=== PATIENT | female | born 1995 | race Caucasian/White ===

== ENCOUNTER 2022-12-25 18:25 | Emergency (ER) | payer SELFPAY ==
[2022-12-25 18:35] VITALS: BP 123/70; PULSE 101; RESP 18; TEMP 36.9; O2SAT 99
--- NOTE | 2022-12-25 18:44 | PC.NURSE ---
Patient up to triage desk to notify this RN that she no longer wanted to wait to be seen. She stated I think it's just a migraine. I'm going to go home and sleep it off . patient encouraged to stay but she declined. Encouraged to return with any new or worsening sx.
== END 2022-12-25 21:41 | disposition left against medical advice (07) ==
PROVIDERS: PCP Hospitalist
DX: R51.9 Headache, unspecified (principal)
CPT/HCPCS: 99199

== ENCOUNTER 2025-06-02 12:08 | Emergency (ER) | payer BC, SELFPAY ==
--- NOTE | ~2025-06-02 | XR_ITS ---
EXAMINATION: XR chest 1V portable 06/02/2025 17:00 INDICATION: Chest pain PROCEDURE: AP portable chest COMPARISON: 10/14/2019 FINDINGS: The lungs are clear. The cardiomediastinal silhouette is within normal limits. There are no pleural effusions. There is no pneumothorax suspected. There are calcified mediastinal and right hilar lymph nodes and there is calcified granuloma in the right apex. Findings compatible with chronic granulomatous disease. IMPRESSION: 1: NO ACUTE CARDIOPULMONARY DISEASE. Reviewed, dictated and finalized at location O.
--- NOTE | 2025-06-02 12:09 | ECG_ITS ---
Test Date: 2025-06-02 12:13:36 Measurements Intervals [place] Rate: 88 P: 43 OR: 146 QRS: 56 QRSD: 82 T: 36 QT: 355 QTc: 431 Interpretive Statements SINUS RHYTHM NORMAL ECG No previous ECG available for comparison Electronically Signed On 06-02-2025 16:24:25 CDT by Jorje Villeda M.D.
[2025-06-02 12:32] LABS: Hematocrit 38.1 % (37.0-47.0); Hemoglobin 12.8 g/dL (12.0-15.0); Immature Granulocyte Percent A 0.3 % (0-0.5); Lymphocytes Absolute Auto 2.34 K/mm3 (0.9-3.2); Mean Corpuscular HGB Conc 33.6 g/dl (32-36); Mean Corpuscular Hemoglobin 30.5 pg (26-34); Mean Corpuscular Volume 90.7 fl (80-100); Nucleated Red Blood Cells Absolute Auto 0.000 K/mm3 (0.0-0.012); Nucleated Red Blood Cells Perc 0.0 % (0.0-0.2); Platelet Count Result 313 k/mm3 (150-375); Red Blood Count 4.20 M/mm3 (4.2-5.4); White Blood Count 11.6 K/mm3 (4.5-10.0)
[2025-06-02 12:43] LABS: INR 0.9; Prothrombin Time 12.7 Seconds (11.1-14.7)
[2025-06-02 12:44] LABS: Partial Thromboplastin Time 26.4 Seconds (22.3-36.8)
[2025-06-02 12:46] LABS: Alanine Aminotransferase 15 U/L (6-35); Albumin Level 4.2 g/dL (3.5-5.1); Alkaline Phosphatase 93 U/L (38-126); Anion Gap 9 mmol/L (4-12); Aspartate Amino Transferase 19 U/L (14-36); Bilirubin,Total 0.5 mg/dL (0.2-1.3); Blood Urea Nitrogen 9 mg/dL (7-17); Calcium 9.0 mg/dL (8.4-10.2); Carbon Dioxide 21 mmol/L (22-30); Chloride 105 mmol/L (98-107); Estimated Glomerular Filt Rate > 60; Glucose 103 mg/dL (65-110); Lipase 112 U/L (23-300); Potassium 3.9 mmol/L (3.4-5.0); Sodium 135 mmol/L (137-145); Total Protein 6.8 g/dL (6.3-8.2)
[2025-06-02 12:52] VITALS: BP 137/85; PULSE 103; RESP 18; TEMP 36.7; O2SAT 100
--- OUTSIDE RECORDS SUMMARY | 2025-06-02 12:58 | XMS_ITS | Clinical Summary ---
Author Organization [id number] [place] Address [address] [place] [id number] Care Team Providers Care Waste Salvager Name Role Phone Lilian Noel NP Primary Care Provider [phone] Mirella Zamorano MD Unavailable [phone] Allergies No known active allergies Medications no122/iron/foli c acid ( MULTI ORAL) Take by mouth Active Lactobac no.41/Bifidobac t no.7 (PROBIOTIC-10 ORAL) Take by mouth Active magnesium oxide 400 mg magnesium capsule Take by mouth 250 mg qd Active ascorbic acid (vitamin C) 100 mg tablet Take 1 tablet (100 mg total) by mouth daily Active cholecalciferol (Vitamin D3) 2000 unit tablet Take 1 tablet (2,000 Units total) by mouth daily Active omega-3 fatty acids-fish oil 300-1,000 mg capsule Take 2 capsules (2 g total) by mouth daily Active progesterone (PROMETRIUM) 200 mg capsule Take 1 capsule (200 mg total) by mouth daily 30 capsule 11 5 05/19/20 26 Active nystatin-triamc inolone creamIndication s:cutaneous candidiasis Apply to affected area twice a day for 7-14 days, then as needed for rash. 30 g 5 05/25/20 25 fluconazole (DIFLUCAN) 150 mg tablet Repeat in 3 days if symptoms persist. 2 tablet 05/21/20 25 Discontinue d(Therapy completed) Active Problems Problem Noted Date Diagnosed Date Vaginal delivery 08/19/2023 Threatened 12/30/2022 Assessment & Plan (12/30/2022 8:44 PM CDT): Viable early IUP at 5w6d, EDC 08/20/2023 Call with any bleeding. Return in one week for repeat ultrasound. Skin lesion of neck 07/24/2021 Assessment & Plan (07/24/2021 8:24 AM CDT): Referred to dermatology for further evaluation and management. Clicking of left hip 07/24/2021 Assessment & Plan (07/24/2021 8:25 AM CDT): Encouraged range of motion exercises. Encouraged patient to use a he had 20 minutes prior to stretching. Notify our office if no improvement. Class 2 obesity due to exces s calories without serious comorbidity with body mass index (BMI) of 36.0 to 36.9 in adult 07/24/2021 Assessment & Plan (01/04/2025 12:00 PM CDT): Pt wanting to conceive in the next 2 months. Discussed consistent exercise and diet. Will get updated labs. Healthy, low carbohydrate lifestyle and exercise for 150min/week recommended Assessment & Plan (06/21/2023 10:03 AM CDT): Continue follow up with OB on healthy weight gain. Assessment & Plan (06/04/2022 2:44 PM CDT): Patient has had difficulty maintaining and sustaining weight loss; however patient reports she has not consistent with diet or activity changes Encouraged patient continue to work on small sustainable changes, use of resources to help with accountability and behavioral modifications Will continue to monitor; follow-up in 1 year, or earlier if patient would like continued evaluation for weight loss Encouraged patient continue with caloric restriction, as well as moderate intensity exercise 5 days per week Assessment & Plan (07/24/2021 8:25 AM CDT): Weight reduction, daily exercise and dietary modifications recommended. Comments Yes Encounters Date Type Department Care Team Description 05/24/2025 Results Follow-Up [facility] [address] [place] [phone] Mirella Zamorano MD Urine culture Urine, clean voided 05/21/2025 1:15 PM CDT - 05/21/2025 11:59 PM CDT Hospital Encounter [address] [phone] First trimester Discharge Disposition: Discharge to home or self care 05/21/2025 8:00 AM CDT Procedure visit [facility] [address] [place] [phone] Mirella Zamorano MD First trimester (Primary Dx) 05/19/2025 10:35 AM CDT Lab [address] [address] Bleeding in early 05/19/2025 Telephone [facility] [address] [place] [phone] Mirella Zamorano MD 05/19/2025 Telephone [facility] [address] [place] [phone] Mirella Zamorano MD Bleeding in 05/04/2025 Telephone [facility] [address] [place] [phone] Mirella Zamorano MD Possible 04/30/2025 6:27 PM CDT - 04/30/2025 11:59 PM CDT Hospital Encounter [address] [phone] Vaginal irritation Discharge Disposition: Discharge to home or self care 04/30/2025 3:15 PM CDT Office Visit [facility] [address] [facility] [address] [place] [phone] Mirella Zamorano MD Vaginal irritation (Primary Dx) 03/30/2025 Patient Message [facility] at [address] [phone] Lilian Noel NP Referral for histotechnologist supervisor from Last 3 Months Immunizations Immunization Administration Dates Next Due Influenza, Quadrivalent, Spl it, Preservative Free, Intramuscular 06/27/2023,08/13/2022,07/24/2021,07/02,06/25/2018 Influenza, Unspecified 09/23/2023,2022(Deferred: Patient Refused),04/23/2023,09/23/2022(Deferre d: Patient Refused) MMR 04/22/2020 Meningococcal Conjugate (Menveo) 04/19/2011 Meningococcal MCV4P (Menactra) 05/11/2015 Tdap 06/27/2023,06/25/2018 Surgical History Surgery Date Site/Laterality Comments LEG SURGERY 09/23/2003 - 09/22/2004 Left fixation tibia and fibula TONSILLECTOMY 09/23/2017 - 09/22/2018 N/A FRACTURE SURGERY 2006 WISDOM TOOTH EXTRACTION Removed at age 19 CERVICAL POLYPECTOMY Removed from cervix during , at appx. 17 weeks gestation Medical History Medical History Date Comments Anxiety 2019 Family History Medical History Relation Name Comments Learning disabilities Brother Genevieve Alcohol abuse Father Dionisio Rashes / Skin problems Maternal Grandfather Thiago Arthritis Maternal Grandmother Brii Diabetes Maternal Grandmother Brii Diabetes type II Maternal Grandmother Brii Fibromyalgia Maternal Grandmother Brii Heart attack Maternal Grandmother Brii Heart disease Maternal Grandmother Brii Miscarriages / Stillbirths Mother Sarah Cancer Paternal Grandmother Myesha Lung cancer Paternal Grandmother Myesha Breast cancer Neg Hx Colon cancer Neg Hx Endometrial cancer Neg Hx Ovarian cancer Neg Hx Pancreatic cancer Neg Hx Relation Name Status Comments Brothodessa [place] Father Dionisio Maternal Grandfather Thiago Maternal Grandmother Brii Mother Sarah Paternal Grandmother Myesha Social History Tobacco Use Types Packs/Day Years Used Date Smoking Tobacco: Never Passive Smoke Exposure: Past Smokeless Tobacco: Never Tobacco Cessation:Counseling Given: Not Answered Alcohol Use Standard Drinks/Week Comments No 0 (1 standard drink = 0.6 oz pur e alcohol) Social Connection and Isolation Panel Answer Date Recorded In a typical week, how many times do you talk on the phone with family, friends, or neighbors? Three times a week 07/04/2023 How often do you get togethe r with friends or relatives? Three times a week 07/04/2023 How often do you attend chur or samaritan services? Never 07/04/2023 Do you belong to any clubs o r organizations such as rastafari groups, unions, fraternal or athletic groups, or school groups? Yes 07/04/2023 How often do you attend meet ings of the clubs or organizations you belong to? Never 07/04/2023 Are you , , di vorced, , never , or living with a partner? 07/04/2023 AUDIT-C Answer Date Recorded Q1: How often do you have a drink containing alc ohol? Monthly or less 06/04/2022 Q2: How many drinks containi ng alcohol do you have on a typical day when you are drinking? 1 or 2 06/04/2022 Q3: How often do you have si x or more drinks on one occasion? Never 06/04/2022 Overall Financial Resource Strain (CARDIA) Answe r Date Recorded How hard is it for you to pa y for the very basics like food, housing, medical care, and heating? Not hard at all 08/19/2023 PHQ-2 Answer Date Recorded PHQ-2 Total Score (If total score is 3 or more points, staff should administer the PHQ-9) 0 01/04/2025 [facility] - Occupational Stress Questionnaire Answer Date Recorded Do you feel stress - tense, restless, nervous, or anxious, or unable to sleep at night because your mind is troubled all the time - these days? Not at all 08/19/2023 Exercise Vital Sign Answer Date Recorde d On average, how many days pe r week do you engage in moderate to strenuous exercise (like a brisk walk)? 3 days 08/19/2023 On average, how many minutes do you engage in exercise at this level? 30 min 08/19/2023 Hunger Vital Sign Answer Date Recorded Within the past 12 months, y ou worried that your food would run out before you got the money to buy more. Never true 08/19/20 23 Within the past 12 months, t he food you bought just didn't last and you didn't have money to get more. Never true 08/19/2023 PRAPARE - Transportation Answer Date Re corded In the past 12 months, has l ack of transportation kept you from medical appointments or from getting medications? No 07/25 In the past 12 months, has l ack of transportation kept you from meetings, work, or from getting things needed for daily living? No 08/19/2023 Housing Stability Vital Sign Answer Allan e Recorded In the last 12 months, was t here a time when you were not able to pay the mortgage or rent on time? No 08/19/2023 Number of Places Lived in the Last Year Not on f ile 08/19/2023 In the last 12 months, was t here a time when you did not have a steady place to sleep or slept in a retirement (including now)? No 08/19/2023 Plano Depression Scale Answer Date Recorded Plano Depression Scale Total 4 10/16/2023 The thought of harming myself has occurred to me . Never 10/16/2023 Personal Safety Answer Date Recorded Have you ever been in or are you currently in a harmful physical or emotional relationship or is someone making you feel afraid or unsafe? Denies 08/19/2023 Comments Yes Sex and Gender Information Value Date Recorded Sex Assigned at Not on file Legal Sex Female 1:23 AM CREATIVE DIRECTOR Gender Identity Female 07/17/2021 9:04 AM CDT Sexual Orientation Straight 07/17/2021 9: 04 AM CDT Obstetrics History Para Term AB IAB SAB Ectopic Multiple Livin g Live Births 2 1 1 0 0 0 0 0 0 1 1 Date Outcome GA Total Labor Labor/2nd/3rd Weight Sex Type Anes PTL Zoe A1 A5 Name Clin 2022 Term 39w 6d 0h 37m 0h 33m/0h 04m 3.79 kg (8 lb 5.7 oz) M Vagina l Epidur al N Livin g 8 9 Theod amanuel M SpannHanny Garcia MD Complications:None Delivery Location:This Facil ity ([facility]) Current Comments Menarche at age 13 or 14 OCPs for 10 years. Stopped 10/2019 Normal pap in 2020 6 day periods about every 26 days Last Filed Vital Signs Vital Sign Reading Time Taken Comments Blood Pressure 120/64 05/21/2025 8:06 AM CDT Pulse 87 01/04/2025 11:29 AM CDT Temperature 36.6 C (97.8 F) 01/04/2025 11:29 AM CDT Respiratory Rate 20 08/21/2023 8:00 AM CREATIVE DIRECTOR Oxygen Saturation 99% 01/04/2025 11:29 AM CDT Inhaled Oxygen Concentration - - Weight 117.9 kg (260 lb) 05/21/2025 8:06 AM CDT Height 177.8 cm (5' 10) 05/21/2025 8:06 AM CDT Body Mass Index 37.31 05/21/2025 8:06 AM CDT Plan of Treatment Health Maintenance Due Date Last Done Comments Hepatitis B Screening 2015 Varicella Vaccines (1 of 2 - 13+ 2-dose series) 05/20/2020 HPV Vaccines (1 - 3-dose SCDM series) 01/23/2024 Covid-19 Vaccine (2024- season) 2025 08/25/2021, 12/10/2020, 11/12/2020 Influenza Vaccine (#1) 2025 , 06/27/2023, 04/23/2023, Additional history exists Depression Screening 01/04/2026 01/04/2025, 01/14/2024, 10/16/2023, Additional history exists Regular Well Visit/Exam 18-64 01/04/2026 01/04/2025, 12/29/2024, 12/12/2023, Additional history exists Cervical Cancer Screening 12/11/2026 12/12/2023, 11/2020 DTaP/Tdap/Td Vaccine (3 - Td or Tdap) 06/27/2033 06/27/2023, 06/25/2018 Hepatitis C Screening Completed 01/23/2023 Pneumococcal vaccine <65 Aged Out No longer eligible based on patient's age to complete this topic Procedures Procedure Name Priority Date/Time Associated Diagnosis Comments N. GONORRHOEAE/C. TRACHOMATIS AMPLIFICATION Routine 05/21/2025 6:50 PM CDT First trimester URINE CULTURE Routine 05/21/2025 6:45 PM CDT First trimester HCG, BLOOD, QUANTITATIVE Routine 05/19/2025 10:37 AM CDT Bleeding in early PROGESTERONE Routine 05/19/2025 10:37 AM CDT Bleeding in early VAGINITIS PANEL Routine 04/30/2025 6:45 PM CDT Vaginal irritation PAP WITH REFLEX TO HIGH RISK HPV Routine 12/12/2023 4:44 PM CDT Screening for cervical cancer HEPATITIS C ANTIBODY Routine 01/23/2023 3:37 PM CDT Threatened from Last 3 Months or Most Recently Relevant to Health Maintenance Results * N. gonorrhoeae/C. trachomatis Amplification Urine (05/21/2025 6:50 PM CDT) C. trachomatis Not Detected Not Detected N. gonorrhoeae Not Detected Not Detected [facility] Comment: Interpretive Data This assay detects Chlamydia trachomatis and Neisseria gonorrhoeae by nucleic acid amplification testing (NAAT). This assay has been cleared by the [place] Food and Drug administration. The performance characteristics of this test have been verified by the [facility]. The performance characteristics of this test have not been evaluated in individuals less than 14 years of age. Current Interpretive Data last revised 2023. Urine (None) 05/21/2025 6:50 PM CDT 05/21/2025 6:50 PM CDT us Mirella Zamorano MD LAB MICROBIOLOGY - GEN ERAL ORDERABLES Final Result [facility] [address] [place] [address] * (ABNORMAL) Urine culture Urine, clean voided (05/21/2025 6:45 PM CDT) Report Final Report: Growth indicates contamination with gram-positive forest. Includes the following: Less than 10,000 colonies/ml of Streptococcus agalactiae (Group B Streptococci) Penicillin is the drug of choice for Beta strep infections. If susceptibility testing is clinically indicated, please contact the Microbiology Lab within 7 days for susceptibilites ([phone]). (.) Organism GROWTH INDICATES CONTAMINATION WITH GRAM-POS [facility] Organism STREPTOCOCCUS AGALACTIAE (GROUP B STREPTOCOCCI) [facility] Urine, clean voided 05/21/2025 6:45 PM CDT 05/21/2025 6:45 PM CDT Mirella Zamorano MD LAB MICROBIOLOGY - GEN ERAL ORDERABLES Final Result Performing Organization Address City/[facility] Co de Phone Number [facility] [address] Department [place] [address] * (ABNORMAL) Progesterone (05/19/2025 10:37 AM CDT) Progesterone 11.1(H) 0.0 - 0.2 ng/mL Comment: Interpretive Data Males: <0.15 ng/mL Females: Follicular <0.20 ng/mL Ovulation <4.1 ng/mL Luteal 4.1 - 14.5 ng/mL 1st Trimester 11.0 - 44.0 ng/mL 2nd Trimester 25.0 - 83.0 ng/mL 3rd Trimester 59.0 - 214.0 ng/mL Postmenopausal <0.13 ng/mL Current interpretive data was last revised 2021. Blood 05/19/2025 10:3 7 AM CDT 05/19/2025 2:38 PM CDT Mirella Zamorano MD LAB BLOOD ORDERABLES F inal Result Performing Organization Address City/State/[facility] Co de Phone Number [address] [place] [address] * (ABNORMAL) hCG, blood, quantitative (05/19/2025 10:37 AM CDT) [facility] hCG, quant 22,825.0( H) 0.0 - 5.0 IUnits/L Comment: Interpretive Data Male: < 5 IU/L Non- premenopausal Female: <5 IU/L The Jie hCG Beta Quant assay procedure was used. Results from different manufacturers or methods may not be comparable. Serial testing should be performed using the same method. Interpretive Data was last revised on 2023 Blood 05/19/2025 10:3 7 AM CDT 05/19/2025 2:38 PM CDT Mirella Zamorano MD LAB BLOOD ORDERABLES F inal Result Performing Organization Address City/[facility] Co de Phone Number [address] of [employer] [place] [address] * (ABNORMAL) Vaginitis panel Vaginal (04/30/2025 6:45 PM CDT) [facility] Bacterial Vaginosis Not Detected Not Detected Comment:A negative result do es not preclude a possible infection. Results should be considered in conjunction with clinical presentation to determine the disease status. Alysha group Detected(A) Not Detected [facility] Comment:Alysha species can be present as commensal organisms in women; results should be considered in conjunction with clinical presentation to determine the disease status. Alysha glabrata/ krusei Not Detected Not Detected [facility] Trichomonas DNA Not Detected Not Detected [facility] Vaginal 04/30/2025 6:45 PM CDT 04/30/2025 6:48 PM CDT Narrative [facility] - 04/30/2025 8:07 PM CDT The [employer] Xpert Xpress MVP test detects DNA targets from anaerobic bacteria associated with bacterial vaginosis, Alysha species associated with vulvovaginal candidiasis, and Trichomonas vaginalis by nucleic acid amplification testing (NAAT). Results should be interpreted in conjunction with other clinical data. This test cannot be used to assess therapeutic success or failure because target nucleic acids may persist following antimicrobial therapy. This test has been cleared by the [place] Food and Drug Administration to aid in the diagnosis of vaginal infections in symptomatic women ages 14 and older. The performance characteristics of this test have been verified by the [facility]. Mirella Zamorano MD LAB MICROBIOLOGY - GEN ERAL ORDERABLES Final Result [facility] [id number] Department of Laboratories [place] [id number] * Pap with reflex to High Risk HPV and Genotyping (Cytology Component) (12/12/2023 4:44 PM CDT) Thin prep (Pap test) 12/12/2023 4:44 PM CDT 12/13/2023 3:53 PM CDT Narrative PATHOLOGY [facility] - 12/16/2023 1:27 PM CDT EPIC results best viewed via link to PDF [place] [id number] [place], [place] [address] Tele: Suzi Benavides MD - Business Education Instructor CYTOLOGY REPORT Note to Patients: This report may contain a detailed description of human tissue sent by a health care provider to the laboratory for pathologic evaluation. The content of this report is essential for diagnosis and may provide important critical findings. This information may be unfamiliar to patients to review without a medical professional present. It is advised that the patient review this report in the presence of a health care provider who can answer questions and explain the details. Patient Name: DARRICK SPANN Address: [address] [place] [address] Gender: F : 1995 (Age: 28) Service: Location: [facility] #: [id number] Patient [place] [facility] [place] Taken: 12/12/2023 Reported: 12/16/2023 Physician(s): Mirella Zamorano MD FINAL DIAGNOSIS: SOURCE OF SPECIMEN - ThinPrep Pap w/ reflex HPV: STATEMENT OF ADEQUACY Source: Cervical/Endocervical - Satisfactory for interpretation - Endocervical/Transformation zone component absent or insufficient - Case screened using computer assisted imaging technology and manually re- screened by a archivist political history. GENERAL CATEGORIZATION: - Negative for intraepithelial lesion or malignancy [facility]/12/16/2023 13:27REUBEN Smith(ASCP), CFIAC Report Reviewed and Electronically Signed By REUBEN Smith(ASCP), CFIACClerical Data Follow A; [id number] CLINICAL DIAGNOSIS AND HISTORY Last Menstrual Period: 12/08/23 REPORT IMAGES AND/OR SCANNED DOCUMENTS ONLY VIEWABLE IN PDF FORMAT The Pap test is a screening test used to aid in the detection of cervical cancer and its precursors. It should not be the sole means by which malignant and premalignant lesions are diagnosed. Both false negative and false positive results may occur. It also has poor sensitivity for the detection of endometrial lesions and should not be used to evaluate suspected endometrial abnormalities. For these reasons it is most important to obtain Pap tests at regular intervals, as recommended by your physician or nurse practitioner. us Mirella Zamorano MD LAB CYTOLOGY ORDERABLE S Final Result PATHOLOGY [facility] Laboratory Receiving [id number] [place] [address] * Hepatitis C antibody (01/23/2023 3:37 PM CDT) Hep C Ab Nonreactive Nonreactive [facility] Comment: Interpretive Data Nonreactive: Antibodies to HCV not detected. Does NOT exclude the possibility of recent exposure to HCV. Equivocal: Equivocal for HCV antibodies. Supplemental molecular testing will be automatically performed to determine infection status in accordance with current CDC screening recommendations. Reactive: Positive for HCV antibodies. This may represent current or past HCV infection. Supplemental molecular testing will be automatically performed to determine current infection status in accordance with current CDC screening recommendations. Interpretive data was last revised on 2019. Blood 01/23/2023 3:37 PM CDT 01/23/2023 8:14 PM CDT us Mirella Thuet Lona MD LAB MICROBIOLOGY - GEN ERAL ORDERABLES Edited Result - Final [facility] [id number] [facility] [place] [address] from Last 3 Months or Most Recently Relevant to Health Maintenance Insurance [employer] [place] [facility] H[facility]/PPO Address: [address] [address] [place] [address] [facility] Advance Directives For more information, please contact: [phone] * Full Code (Latest Code Status on File) Date Activated Date Inactivated Comments 08/19/2023 8:20 PM 08/21/2023 2:42 PM * Full Code Date Activated Date Inactivated Comments 08/19/2023 8:13 AM 08/19/2023 8:20 PM Full CPR i n case of cardiopulmonary arrest Care Teams Waste Salvager Relationship Specialty Start Date End Date Lilian Noel NP [address] [place] [address] PCP - General Family Medicine 06/21/23 Mirella Zamorano MD [address] [place] [address] Consulting Physician Obstetrics and Gynecology 06/21/23
--- OUTSIDE RECORDS SUMMARY | 2025-06-02 12:58 | XMS_ITS | Encounter Summary ---
Author Organization [facility] Healthcare Address [address] [place] [address] Care Team Providers Care Robot Operator Name Role Phone Lilian Noel NP Primary Care Provider [phone] Mirella Zamorano MD Unavailable [phone] Encounter Details Date Type Department Care Team (Late st Contact Info) Description 05/24/2025 Results Follow-Up [facility] [address] [id number] Mirella Zamorano MD [address] [address] Urine culture Urine, clean voided Social History Tobacco Use Types Packs/Day Years Used Date Smoking Tobacco: Never Passive Smoke Exposure: Past Smokeless Tobacco: Never Alcohol Use Standard Drinks/Week Comments No 0 [...] week 07/04/2023 How often do you attend [facility] or pentecostalism services? Never 07/04/2023 Do you belong to any clubs o r organizations such as orthodox groups, unions, fraternal or athletic groups, or [...] staff should administer the PHQ-9) 0 01/04/2025 [facility] - Occupational Stress [...] place to sleep or slept in a long-term (including now)? 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 It did show group beta strep though. This is the bacteria that we do the swab for later in but because you showed it now, we don'tneed to do that. We just recommend antibiotics during labor. No stress AC documented in this encounter Plan of Treatment Not on file documented as of this encounter Visit Diagnoses Not on filedocumented in this encounter Care Teams Robot Operator Relationship Specialty Start Date End Date Lilian Noel NP [address] [place] [address] PCP - General Family Medicine 06/21/23 Mirella Zamorano MD [address] [address] Consulting Physician Obstetrics and Gynecology 06/21/23 documented as of this encounter
[2025-06-02 13:03] LABS: Troponin I < 0.012 ng/mL (0.000-0.034)
--- NOTE | 2025-06-02 13:09 | ED_ITS ---
HPI - Chest Pain General Chief Complaint: Chest Pain <Yuriy Gamez APRN - Last Filed: 06/02/25 13:13> Stated Complaint: 8 wks preg, CHEST PAIN,SOB <Yuriy Gamez APRN - Last Filed: 06/02/25 13:13> Time Seen by Provider: 06/02/25 15:44 <Yuriy Gamez APRN - Last Filed: 06/02/25 13:13> Focused HPI: 30-year-old female presents to the ER complaining of chest pain and shortness of breath. Patient reports symptoms have been gone the last 3 days. Patient says she gets the chest pain shortness of breath when she is exerting herself that will rapidly subsided. Patient is currently 8 weeks also reports having vaginal spotting, she had a ultrasound 2 weeks ago was evaluated by our OBGYN told she had a viable . Patient denies any abdominal pain, nausea, vomiting, diarrhea, fevers, body aches, chills, urinary symptoms, or any other symptoms. Patient has any recent surgeries, prolonged traveling, or any history of blood clots. Patient has appointment on Saturday at her OBGYN along with a repeat ultrasound. GENERAL: Well-appearing, well-nourished, and in no acute distress. HEAD: Normocephalic, atraumatic. CHEST: Clear to auscultation. ?No respiratory distress. HEART: Regular rate and rhythm.? NEURO: ?Alert and oriented x3. Patient screened in triage and initial orders placed.? ?Additional care and disposition to be based upon?diagnostic testing and treatment. <Yuriy Gamez APRN - Last Filed: 06/02/25 13:13> History of Present Illness HPI narrative: agree with HPI <Leobardo Suresh MD - Last Filed: 06/02/25 21:48> Related Data Home Medications: Home Medications ?Medication ?Instructions ?Recorded ?Confirmed ?Last Taken ?Type ascorbic acid (vitamin C) 500 mg 500 mg PO DAILY 08/0802/16/21 Unknown History tablet xbhwdtokrxda-Ms-eimk-minerals 18 tablet PO DAILY 08/0802/16/21 Unknown History mg-0.4 mg tablet (Maximum Daily Multivitamin) cholecalciferol (vitamin D3) 25 25 mcg PO DAILY 02/16/21 Unknown History mcg (1,000 unit) capsule famotidine 20 mg tablet 20 mg PO .PRN 02/16/2102/16 Unknown History <Yuriy Gamez APRN - Last Filed: 06/02/25 13:13> Allergies/Adverse Reactions: Allergies Allergy/AdvReac Type Severity Reaction Status Date / Time No Known Allergies Allergy Verified 06/02/25 12:09 <Yuriy Gamez APRN - Last Filed: 06/02/25 13:13> Review of Systems 2 Review of Systems: Gen.: Denies fevers or chills Eyes: Denies eye pain or visual change ENT: Denies congestion Respiratory: As per HPI CV: As per HPI GI: Denies abdominal pain nausea, emesis or diarrhea denies burning, urgency, frequency or hematuria Musculoskeletal: Denies back pain or muscle pain Neuro: Denies numbness, tingling, weakness or focal weakness Skin: Denies rash Except as documented, all other systems reviewed and negative <Leobardo Suresh MD - Last Filed: 06/02/25 21:48> [facility] Past Medical History Medical History: Medical History COVID-19 (~07/25/20) Anxiety <Yuriy Gamez APRN - Last Filed: 06/02/25 13:13> Surgical History Surgical History: Surgical History Hx of tonsillectomy (~2017) <Yuriy Gamez APRN - Last Filed: 06/02/25 13:13> Family History Family History: Family History Mother Patient's mother is in good health Father Patient's father is in good health Family history of alcoholism Grandparent Family history of lung cancer, Onset Age: 50 Family history of obesity Family history of hypercholesterolemia Family history of suicide Family history of arthritis <Yuriy Gamez APRN - Last Filed: 06/02/25 13:13> Social History Social History: Social History 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 Smoking status: Never smoker Second hand tobacco smoke exposure: No Alcohol intake: current Substance use: current Substance use type: marijuana Other substance usage details: occasional Gender identity (if verbalized by the patient): Female <Yuriy Gamez APRN - Last Filed: 06/02/25 13:13> Exam 2 Narrative: APPEARANCE: No acute distress, nontoxic, resting in bed EYES: EOMI HEENT: Normocephalic, atraumatic, OMM RESPIRATORY: No respiratory distress Clear to auscultation bilaterally with no rhonchi wheezing or rales. CARDIOVASCULAR: Regular rate and rhythm without murmurs rubs or gallops. ABDOMINAL: Soft, nontender, nondistended, no rebound or guarding MUSCULOSKELETAl: Moves all extremities. No clubbing, cyanosis or edema. NEURO: Awake and alert. Following commands, speech normal, no focal deficits SKIN:: Warm, dry. No rashes lesions or abrasions PSYCHIATRIC: Normal affect/mood, <Leobardo Suresh MD - Last Filed: 06/02/25 21:48> Course Vital Signs Vital signs: Vital Signs Temperature 98.0 F 06/02/25 12:52 Pulse Rate 103 H 06/02/25 12:52 Respiratory Rate 18 06/02/25 12:52 Blood Pressure 137/85 06/02/25 12:52 Pulse Oximetry 100 06/02/25 12:52 Temperature 98.0 F 06/02/25 12:52 Pulse Rate 84 06/02/25 17:42 Respiratory Rate 16 06/02/25 17:42 Blood Pressure 136/86 06/02/25 17:42 Pulse Oximetry 100 06/02/25 17:42 <Yuriy Gamez APRN - Last Filed: 06/02/25 13:13> Vital Signs Temperature 98.0 F 06/02/25 12:52 Pulse Rate 103 H 06/02/25 12:52 Respiratory Rate 18 06/02/25 12:52 Blood Pressure 137/85 06/02/25 12:52 Pulse Oximetry 100 06/02/25 12:52 Temperature 98.0 F 06/02/25 12:52 Pulse Rate 84 06/02/25 17:42 Respiratory Rate 16 06/02/25 17:42 Blood Pressure 136/86 06/02/25 17:42 Pulse Oximetry 100 06/02/25 17:42 <Leobardo Suresh MD - Last Filed: 06/02/25 21:48> MDM - Chest Pain MDM Narrative Medical decision making narrative: 30-year-old female who presented to the ED for exertional chest pain and dyspnea. On initial evaluation, patient is in no acute distress, afebrile and hemodynamically stable. Heart and lungs clear. Abdomen soft nontender. She had mild leukocytosis at 11.6. CMP with a significant abnormalities. HCG appropriately elevated. COVID/flu/RSV negative. D-dimer was obtained and by years criteria, PE has been ruled out in this patient. Chest x-ray showed no acute process. Suspect patient has an atypical chest pain versus costochondritis causing her symptoms. She has appoint with OB later this week which I encouraged her to go to. She was educated on Tylenol use. Patient was agreeable to this plan. Given strict return precautions. <Leobardo Suresh MD - Last Filed: 06/02/25 21:48> Differential Diagnosis Differential diagnosis: Likely fracture of rib, atypical chest pain, costochondritis and other (Viral syndrome) <Leobardo Suresh MD - Last Filed: 06/02/25 21:48> Medical Records Data Attestation: I reviewed the patient's medical records. <Leobardo Suresh MD - Last Filed: 06/02/25 21:48> Lab Data Attestation: I reviewed the patient's lab results. <Leobardo Suresh MD - Last Filed: 06/02/25 21:48> Result diagrams: 06/02/25 12:23 06/02/25 12:23 <Yuriy Gamez APRN - Last Filed: 06/02/25 13:13> Labs: Lab Results 06/02/25 06/02/25 06/02/25 Range/Units 12:23 16:06 16:44 WBC 11.6 H (4.5-10.0) K/mm3 RBC 4.20 (4.2-5.4) M/mm3 Hgb 12.8 (12.0-15.0) g/dL Hct 38.1 (37.0-47.0) % MCV 90.7 (80-100) fl MCH 30.5 (26-34) pg MCHC 33.6 (32-36) g/dl RDW 12.7 (11.5-14.5) % Plt Count 313 (150-375) k/mm3 MPV 9.1 (7.4-10.4) fl Immature Gran % (Auto) 0.3 (0-0.5) % Neut % (Auto) 71.1 (45.5-73.1) % Lymph % (Auto) 20.1 (18.3-44.2) % [place] % (Auto) 6.7 (2.6-8.5) % Eos % (Auto) 1.5 (0-4.4) % Baso % (Auto) 0.3 (0.2-1.2) % Lymph # (Auto) 2.34 (0.9-3.2) K/mm3 [place] # (Auto) 0.8 H (0.1-0.6) K/mm3 Eos # (Auto) 0.2 (0-0.3) K/mm3 Baso # (Auto) 0.0 (0.0-0.1) K/mm3 Abs Immat Gran (auto) 0.03 (0.00-0.031) K/mm3 Absolute Neuts (auto) 8.3 H (1.3-6.7) K/mm3 Absolute Nucleated RBC 0.000 (0.0-0.012) K/mm3 Nucleated RBC % 0.0 (0.0-0.2) % PT 12.7 (11.1-14.7) Seconds INR 0.9 APTT 26.4 (22.3-36.8) Seconds D-Dimer 0.92 H (<0.48) ug/mL Sodium 135 L (137-145) mmol/L Potassium 3.9 (3.4-5.0) mmol/L Chloride 105 (98-107) mmol/L Carbon Dioxide 21 L (22-30) mmol/L Anion Gap 9 (4-12) mmol/L BUN 9 (7-17) mg/dL Creatinine 0.62 L (0.7-1.0) mg/dL Estim Creat Clear Calc Not Reportable Estimated GFR > 60 (59 - ) Glucose 103 (65-110) mg/dL Calcium 9.0 (8.4-10.2) mg/dL Total Bilirubin 0.5 (0.2-1.3) mg/dL AST 19 (14-36) U/L ALT 15 (6-35) U/L Alkaline Phosphatase 93 (38-126) U/L Troponin I < 0.012 < 0.012 (0.000-0.034) ng/mL Total Protein 6.8 (6.3-8.2) g/dL Albumin 4.2 (3.5-5.1) g/dL Lipase 112 (23-300) U/L Beta HCG, Quant 384052.00 mIU/ML Influenza A (RT-PCR) Negative (Negative) Influenza B (RT-PCR) Negative (Negative) RSV (RT-PCR) Negative (Negative) SARS-CoV-2 RNA (RT-PCR) Negative (Negative) <Yuriy Gamez, ACTIVITIES AIDE - Last Filed: 06/02/25 13:13> Lab Results 06/02/25 06/02/25 06/02/25 Range/Units 12:23 16:06 16:44 WBC 11.6 H (4.5-10.0) K/mm3 RBC 4.20 (4.2-5.4) M/mm3 Hgb 12.8 (12.0-15.0) g/dL Hct 38.1 (37.0-47.0) % MCV 90.7 (80-100) fl MCH 30.5 (26-34) pg MCHC 33.6 (32-36) g/dl RDW 12.7 (11.5-14.5) % Plt Count 313 (150-375) k/mm3 MPV 9.1 (7.4-10.4) fl Immature Gran % (Auto) 0.3 (0-0.5) % Neut % (Auto) 71.1 (45.5-73.1) % Lymph % (Auto) 20.1 (18.3-44.2) % [place] % (Auto) 6.7 (2.6-8.5) % Eos % (Auto) 1.5 (0-4.4) % Baso % (Auto) 0.3 (0.2-1.2) % Lymph # (Auto) 2.34 (0.9-3.2) K/mm3 [place] # (Auto) 0.8 H (0.1-0.6) K/mm3 Eos # (Auto) 0.2 (0-0.3) K/mm3 Baso # (Auto) 0.0 (0.0-0.1) K/mm3 Abs Immat Gran (auto) 0.03 (0.00-0.031) K/mm3 Absolute Neuts (auto) 8.3 H (1.3-6.7) K/mm3 Absolute Nucleated RBC 0.000 (0.0-0.012) K/mm3 Nucleated RBC % 0.0 (0.0-0.2) % PT 12.7 (11.1-14.7) Seconds INR 0.9 APTT 26.4 (22.3-36.8) Seconds D-Dimer 0.92 H (<0.48) ug/mL Sodium 135 L (137-145) mmol/L Potassium 3.9 (3.4-5.0) mmol/L Chloride 105 (98-107) mmol/L Carbon Dioxide 21 L (22-30) mmol/L Anion Gap 9 (4-12) mmol/L BUN 9 (7-17) mg/dL Creatinine 0.62 L (0.7-1.0) mg/dL Estim Creat Clear Calc Not Reportable Estimated GFR > 60 (59 - ) Glucose 103 (65-110) mg/dL Calcium 9.0 (8.4-10.2) mg/dL Total Bilirubin 0.5 (0.2-1.3) mg/dL AST 19 (14-36) U/L ALT 15 (6-35) U/L Alkaline Phosphatase 93 (38-126) U/L Troponin I < 0.012 < 0.012 (0.000-0.034) ng/mL Total Protein 6.8 (6.3-8.2) g/dL Albumin 4.2 (3.5-5.1) g/dL Lipase 112 (23-300) U/L Beta HCG, Quant 195920.00 mIU/ML Influenza A (RT-PCR) Negative (Negative) Influenza B (RT-PCR) Negative (Negative) RSV (RT-PCR) Negative (Negative) SARS-CoV-2 RNA (RT-PCR) Negative (Negative) <Leobardo Suresh MD - Last Filed: 06/02/25 21:48> Imaging Data Radiologist's impression: Impressions Chest X-Ray 06/02/25 17:01 IMPRESSION: 1: NO ACUTE CARDIOPULMONARY DISEASE. <Leobardo Suresh MD - Last Filed: 06/02/25 21:48> ECG Data EKG #1: Attestation: I personally reviewed and interpreted this ECG as follows: <Leobardo Suersh MD - Last Filed: 06/02/25 21:48> ECG completion date: 06/02/25 <Leobardo Suresh MD - Last Filed: 06/02/25 21:48> ECG completion time: 12:13 <Leobardo Suresh MD - Last Filed: 06/02/25 21:48> Interpretation: Normal sinus rhythm rate of 88, normal axis, normal intervals, no acute ST or T-wave changes <Leobardo Suresh MD - Last Filed: 06/02/25 21:48> EKG #2: ECG completion date: 06/02/25 <Leobardo Suresh MD - Last Filed: 06/02/25 21:48> ECG completion time: 15:54 <Leobardo Suresh MD - Last Filed: 06/02/25 21:48> Interpretation: Normal sinus rhythm rate of 91, normal axis, normal intervals, no acute ST or T-wave changes. No change from earlier <Leobardo Suresh MD - Last Filed: 06/02/25 21:48> Discharge Plan Discharge Clinical Impression: Atypical chest pain <Yuriy Gamez APRN - Last Filed: 06/02/25 13:13> Patient Disposition: Home <Yuriy Gamez APRN - Last Filed: 06/02/25 13:13> Condition: Stable <Yuriy Gamez APRN - Last Filed: 06/02/25 13:13> Instructions: Antibiotic Form, Chest Pain (ED) <Yuriy Gamez APRN - Last Filed: 06/02/25 13:13> Additional Instructions: Your lab work, chest x-ray, EKG all reassuring and not indicative of heart damage at this time. There is no evidence of clots knee lungs. Follow-up with your OB on Saturday as scheduled. Return to the ED for any new or worsening symptoms. <Yuriy Gamez APRN - Last Filed: 06/02/25 13:13> Patient Language: Taiwanese <Yuriy Gamez APRN - Last Filed: 06/02/25 13:13> Prescriptions: No Action famotidine 20 mg tablet 20 mg PO .PRN cholecalciferol (vitamin D3) 25 mcg (1,000 unit) capsule 25 mcg PO DAILY clotrimazole-betamethasone 1-0.05 % cream 1 applic topical BID 28 Days Qty: 45 1RF Maximum Daily Multivitamin 18-0.4 mg tablet PO DAILY ascorbic acid (vitamin C) 500 mg tablet 500 mg PO DAILY <Yuriy Gamez APRN - Last Filed: 06/02/25 13:13> Follow-up/Referrals: Bert,Lilian Ortiz APRN [Primary Care Provider, Unknown] <Yuriy Gamez APRN - Last Filed: 06/02/25 13:13>
[2025-06-02 13:43] VITALS: PULSE 83
[2025-06-02 14:39] LABS: Beta HCG Quantitative 108520.00 mIU/ML
[2025-06-02 14:47] VITALS: BP 143/73; PULSE 79; RESP 18; O2SAT 100
--- NOTE | 2025-06-02 15:45 | ECG_ITS ---
Test Date: 2025-06-02 15:54:15 Measurements Intervals [place] Rate: 91 P: 50 SC: 155 QRS: 48 QRSD: 83 T: 36 QT: 358 QTc: 443 Interpretive Statements SINUS RHYTHM NORMAL ELECTROCARDIOGRAM Compared to ECG 06/02/2025 12:13:36 No significant changes Electronically Signed On 06-02-2025 16:30:17 CDT by Jorje Villeda M.D.
--- OUTSIDE RECORDS SUMMARY | 2025-06-02 16:33 | XMS_ITS | Encounter Summary ---
Author Organization [facility] Healthcare Address [address] [place] [address] Care Team Providers Care Asphalt Distributor Operator Name Role Phone Lilian Noel NP Primary Care Provider [phone] Mirella Zamorano MD Unavailable [phone] Encounter Details Date Type Department Care Team (Late st Contact Info) Description 06/02/2025 Orders Only [facility] [address] [address] Scanning, Provider Social History Tobacco Use Types Packs/Day Years [...] 07/04/2023 How often do you attend chur ch or adventist services? Never 07/04/2023 Do you belong to any clubs o r organizations such as bahai groups, unions, fraternal or athletic groups, or [...] staff should administer the PHQ-9) 0 01/04/2025 [facility] - Occupational Stress Questionnaire Answer Date Recorded [...] in a long-term (including now)? 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 Gender Identity Female 07/17/2021 9:04 AM CDT Sexual Orientation Straight 07/17/2021 9: 04 AM CDT documented as of this encounter Plan of Treatment Not on file documented as of this encounter Procedures Procedure Name Priority Date/Time Associated Diagnosis Comments SCAN - RADIOLOGY/IMAGING 06/02/2025 8:14 AM CDT documented in this encounter Results * SCAN - RADIOLOGY/IMAGING (06/02/2025 8:14 AM CDT) Anatomical Region Laterality Modality Other us Provider Scanning Final Result documented in this encounter Visit Diagnoses Not on filedocumented in this encounter Care Teams Asphalt Distributor Operator Relationship Specialty Start Date End Date Lilian Noel NP [address] [place] [address] PCP - General Family Medicine 06/21/23 Mirella Zamorano MD [address] [place] [address] Consulting Physician Obstetrics and Gynecology 06/21/23 documented as of this encounter
--- OUTSIDE RECORDS SUMMARY | 2025-06-02 16:34 | XMS_ITS | Clinical Summary ---
Author Organization [place] [id number] [place] Address [address] [place] [address] Care Team Providers Care Shellfish Harvester Name Role Phone Lilian Neol NP Primary Care Provider [phone] Mirella Zamorano MD Unavailable [phone] Allergies No known active allergies Medications no122/iron/foli [...] Encounters Date Type Department Care Team Description 06/02/2025 Orders Only [facility] [address] [address] Scanning, Provider 05/24/2025 Results Follow-Up [facility] [address] [address] Mirella Zamorano MD Urine culture Urine, clean voided 05/21/2025 1:15 PM CDT - 05/21/2025 11:59 PM CDT Hospital Encounter [address] [address] First trimester Discharge Disposition: Discharge to home or self care 05/21/2025 8:00 AM CDT Procedure visit [facility] [address] [address] Mirella Zamorano MD First trimester (Primary Dx) 05/19/2025 10:35 AM CDT Lab [address] [address] Bleeding in early 05/19/2025 Telephone [facility] [address] [place] [phone] Mirella Zamorano MD 05/19/2025 Telephone [facility] [address] [place] [phone] Mirella Zamorano MD Bleeding in 05/04/2025 Telephone [facility] [address] [phone] Mirella Zamorano MD Possible 04/30/2025 6:27 PM CDT - 04/30/2025 11:59 PM CDT Hospital Encounter [address] [place] [address] Vaginal irritation Discharge Disposition: Discharge to home or self care 04/30/2025 3:15 PM CDT Office Visit [facility] [address], [place] [address] Mirella Zamorano MD Vaginal irritation (Primary Dx) 03/30/2025 Patient Message [facility] at [address] [phone] Lilian Noel NP Referral for water purification chemist from Last 3 Months Immunizations Immunization Administration [...] cancer Neg Hx Relation Name Status Comments Brother Genevieve Father Dionisio Maternal Grandfather Thiago Maternal Grandmother [...] often do you attend chur ch or baptist services? Never 07/04/2023 Do you belong to any clubs o r organizations such as religious groups, unions, fraternal or athletic groups, or [...] staff should administer the PHQ-9) 0 01/04/2025 [facility] of Occupat ional Health - Occupational Stress [...] place to sleep or slept in a detention (including now)? 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 GONORRHOEAE/C. TRACHOMATIS AMPLIFICATION Routine 05/21/2025 6:50 [...] Recently Relevant to Health Maintenance Results * SCAN - RADIOLOGY/IMAGING (06/02/2025 8:14 AM CDT) Anatomical Region Laterality Modality Other us Provider Scanning Final Result * N. gonorrhoeae/C. trachomatis Amplification Urine (05/21/2025 6:50 PM CDT) C. trachomatis Not Detected Not Detected N. gonorrhoeae Not Detected Not Detected [facility] Comment: Interpretive Data This assay detects Chlamydia trachomatis and Neisseria gonorrhoeae by nucleic acid amplification testing (NAAT). This assay has been cleared by the [place] Food and Drug administration. The performance characteristics of this test have been verified by the [facility]. The performance characteristics of this test have not been evaluated in individuals less than 14 years of age. Current Interpretive Data last revised 2023. Urine (None) 05/21/2025 6:50 PM CDT 05/21/2025 6:50 PM CDT Mirella Zamorano MD LAB MICROBIOLOGY - GEN ERAL ORDERABLES Final Result Performing Organization Address [facility] Co de Phone Number [facility] [address] [facility] SOAK ([employer]) [place] [address] * (ABNORMAL) Urine culture Urine, clean voided (05/21/2025 6:45 PM CDT) Report Final Report: Growth indicates contamination with gram-positive forest. Includes the following: Less than 10,000 colonies/ml of Streptococcus agalactiae (Group B Streptococci) Penicillin is the drug of choice for Beta strep infections. If susceptibility testing is clinically indicated, please contact the Microbiology Lab within 7 days for susceptibilites ([phone]). (.) Organism GROWTH INDICATES CONTAMINATION WITH GRAM-POS [facility] Organism STREPTOCOCCUS AGALACTIAE (GROUP B STREPTOCOCCI) [facility] Urine, clean voided 05/21/2025 6:45 PM CDT 05/21/2025 6:45 PM CDT Mirella Zamorano MD LAB MICROBIOLOGY - GEN ERAL ORDERABLES Final Result Performing Organization Address [facility] de Phone Number [facility] [address] Department SOAK ([employer]) [place] [address] * (ABNORMAL) Progesterone (05/19/2025 10:37 AM CDT) [...] ORDERABLES F inal Result Performing Organization Address [facility] de Phone Number [address] [address] * (ABNORMAL) hCG, blood, quantitative (05/19/2025 10:37 AM CDT) Pathologist [facility] hCG, quant 22,825.0( H) 0.0 - 5.0 [...] ORDERABLES F inal Result Performing Organization Address [facility] de Phone Number [address] [address] * (ABNORMAL) Vaginitis panel Vaginal (04/30/2025 6:45 PM CDT) Bacterial Vaginosis Not Detected Not Detected Comment:A negative result do es not preclude a possible infection. Results should be considered in conjunction with clinical presentation to determine the disease status. Alysha group Detected(A) Not Detected [facility] Comment:Alysha species can be present as commensal organisms in women; results should be considered in conjunction with clinical presentation to determine the disease status. Alysha glabrata/ krusei Not Detected Not Detected [facility] Trichomonas DNA Not Detected Not Detected [facility] Vaginal 04/30/2025 6:45 PM CDT 04/30/2025 6:48 PM CDT N[facility]ative [facility] - 04/30/2025 8:07 PM CDT The CepAceris 3D Inspectionid Xpert Xpress MVP test detects DNA targets [...] this test have been verified by the [facility]. Mirella Zamorano MD LAB MICROBIOLOGY - GEN ERAL ORDERABLES Final Result [place] [address] [place] [address] * Pap with reflex to High Risk HPV and Genotyping (Cytology Component) (12/12/2023 4:44 PM CDT) Thin prep (Pap test) 12/12/2023 4:44 PM CDT 12/13/2023 3:53 PM CDT Narrative PATHOLOGY [facility] - 12/16/2023 1:27 PM CDT EPIC results best viewed via link to PDF [place] [id number] [place], [place] [address] Tele: Suzi Benavides MD - Front Clerk CYTOLOGY REPORT Note to Patients: This report [...] the details. Patient Name: DARRICK SPANN Address: [address] [place] [address] Gender: F : 1995 (Age: 28) [id number] Patient Type: [facility] SPECIMEN Taken: 12/12/2023 Reported: 12/16/2023 Physician(s): Mirella Zamorano MD FINAL DIAGNOSIS: SOURCE OF SPECIMEN - ThinPrep Pap w/ reflex HPV: STATEMENT OF ADEQUACY Source: Cervical/Endocervical - Satisfactory for interpretation - Endocervical/Transformation zone component absent or insufficient - Case screened using computer assisted imaging technology and manually re- screened by a finisher merchant products. GENERAL CATEGORIZATION: - Negative for intraepithelial lesion or malignancy cyril/12/16/2023 13:27REUBEN Smith(ASCP), CFIAC Report Reviewed and Electronically [...] LAB CYTOLOGY ORDERABLE S Final Result PATHOLOGY [facility] Laboratory Receiving [address] [place] [address] * Hepatitis C antibody (01/23/2023 3:37 PM [...] 3:37 PM CDT 01/23/2023 8:14 PM CDT Mirella Zamorano MD LAB MICROBIOLOGY - GEN ERAL ORDERABLES Edited Result - Final [facility] [address] [facility] [place] [address] from Last 3 Months or Most Recently Relevant to Health Maintenance Insurance [facility] Advance Directives For more information, please contact: [phone] * Full Code (Latest Code Status on File) Date Activated Date Inactivated Comments 08/19/2023 8:20 PM 08/21/2023 2:42 PM * Full Code Date Activated Date Inactivated Comments 08/19/2023 8:13 AM 08/19/2023 8:20 PM Full CPR i n case of cardiopulmonary arrest Care Teams Shellfish Harvester Relationship Specialty Start Date End Date Lilian Noel NP [address] [facility] [address] [place] [address] PCP - General Family Medicine 06/21/23 Mirella Zamorano MD [address] [facility] [address], [place] [address] Consulting Physician Obstetrics and Gynecology 06/21/23
--- OUTSIDE RECORDS SUMMARY | 2025-06-02 16:34 | XMS_ITS | Encounter Summary ---
Author Organization [facility] Address [address] [place] [address] Care Team Providers Care Temporary Staff Accountant Name Role Phone Lilian Noel NP Primary Care Provider [phone] Mirella Zamorano MD Unavailable [phone] Encounter Details Date Type Department Care Team (Late st Contact Info) Description 05/24/2025 Results Follow-Up [facility] [address] [address] Mirella Zamorano MD [address] [address] Urine culture Urine, clean voided [...] week 07/04/2023 How often do you attend [facility] or christianity services? Never 07/04/2023 Do you belong to any clubs o r organizations such as episcopalian groups, unions, fraternal or athletic groups, or [...] staff should administer the PHQ-9) 0 01/04/2025 [facility] of Occupat ional Health - Occupational [...] place to sleep or slept in a correction (including now)? 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
[2025-06-02 16:38] LABS: Troponin I < 0.012 ng/mL (0.000-0.034)
[2025-06-02 17:00] VITALS: BP 136/86; PULSE 88; RESP 12; O2SAT 100
[2025-06-02 17:27] LABS: Influenza A QL RT-PCR Negative (Negative); Influenza B QL RT-PCR Negative (Negative); RSV RNA, RT-PCR Negative (Negative); SARS-CoV-2 RNA PCR Negative (Negative)
[2025-06-02 17:42] VITALS: BP 136/86; PULSE 84; RESP 16; O2SAT 100
== END 2025-06-02 17:44 | disposition home or self-care (01) ==
PROVIDERS: Emergency Medicine; Emergency Provider Student in an Organized Health Care Education/Training Program; PCP Nurse Practitioner Family
DX: O26.891 Other specified pregnancy related conditions, first trimester (principal); R07.89 Other chest pain; Z20.822 Contact with and (suspected) exposure to COVID-19; Z86.16 Personal history of COVID-19; Z3A.08 8 weeks gestation of pregnancy
CPT/HCPCS: 36415; 71045; 80053; 83690; 84484; 84702; 85025; 85380; 85610; 85730; 87637; 93005; 99284